=== PATIENT | female | born 1990 | race Caucasian/White ===

== ENCOUNTER 2024-12-22 15:56 | Emergency (ER) | payer SELFPAY ==
[2024-12-22] MEDS: ADENOSINE 3 MG/ML 2 ML VIAL IVP STA (16:14)
[2024-12-22 16:20] VITALS: RESP 16
--- NOTE | 2024-12-22 16:25 | ED ---
General Adult HPI - General Chief complaint: Arrhythmia/Palpitations Stated complaint: SOB Time Seen by Provider: 12/22/24 16:05 Source: patient, RN notes reviewed, old records reviewed Mode of arrival: wheelchair Limitations: no limitations - History of Present Illness Initial comments: This is a 34-year-old female who presents to the emergency department complaining of heart racing. Patient states she has had this happen multiple times in the past but has never been to the ER for it. Patient states she has never been worked up for her palpitations. Patient states her heart rate got over 200 so she got concerned and came to the emergency department. Patient denies any illegal drug use. Patient is on amphetamine use. Patient has any thyroid issues. Patient denies any [id number]-uvqrtns medications. Patient denies being sick recently. Patient denies any chest pain or difficulty breathing. Patient denies any swelling to the legs or calf tenderness - Related Data Home Medications Medication Instructions Recorded Confirmed Semaglutide [Wegovy] 2.4 mg SQ DIRECTED 12/22/24 12/22/24 Allergies Allergy/AdvReac Type Severity Reaction Status Date / Time No Known Allergies Allergy Verified 12/22/24 16:32 Review of Systems ROS Statement: Those systems with pertinent positive or pertinent negative responses have been documented in the HPI. ROS Other: All systems not noted in ROS Statement are negative. Past Medical History Additional Past Medical History / Comment(s): SVT History of Any Multi-Drug Resistant Organisms: None Reported Past Surgical History: No Surgical Hx Reported Past Psychological History: No Psychological Hx Reported Smoking Status: Never smoker Past Alcohol Use History: None Reported Past Drug Use History: None Reported General Exam - General Exam Comments Initial Comments: GENERAL: Patient is well-developed and well-nourished. Patient is nontoxic and well- hydrated and is in mild distress. ENT: Neck is soft and supple. No significant lymphadenopathy is noted. Oropharynx is clear. Moist mucous membranes. Neck has full range of motion without eliciting any pain. EYES: The sclera were anicteric and conjunctiva were pink and moist. Extraocular movements were intact and pupils were equal round and reactive to light. Eyelids were unremarkable. PULMONARY: Unlabored respirations. Good breath sounds bilaterally. No audible rales rhonchi or wheezing was noted. CARDIOVASCULAR: Patient is tachycardic at about 180 beats a minute. It is regular. ABDOMEN: Soft and nontender with normal bowel sounds. SKIN: Skin is clear with no lesions or rashes and otherwise unremarkable. NEUROLOGIC: Patient is alert and oriented x3. Cranial nerves II through XII are grossly intact. Motor and sensory are also intact. Normal speech, volume and content. Symmetrical smile. MUSCULOSKELETAL: Normal extremities with adequate strength and full range of motion. No lower extremity swelling or edema. No calf tenderness. LYMPHATICS: No significant lymphadenopathy is noted PSYCHIATRIC: Normal psychiatric evaluation. Limitations: no limitations Course Vital Signs 12/22/24 12/22/24 12/22/24 16:03 16:19 17:31 Temperature 98.0 F Pulse Rate 184 H 106 H 102 H Respiratory 18 16 16 Rate Blood Pressure 133/101 116/84 107/79 O2 Sat by Pulse 99 98 99 Oximetry Medical Decision Making - Medical Decision Making EKG is interpreted by myself and EKG shows a SVT at 176 bpm QRS is 91 QT interval is 227 QTc is 321. Patient's EKG shows no ST segment elevation or depression. Was pt. sent in by a medical professional or institution (, PA, ARBOREAL SCIENTIST, urgent ca re, hospital, or skilled nursing...) When possible be specific @ -No Did you speak to anyone other than the patient for history (EMS, parent, family, police, friend...)? What history was obtained from this source @ -No Did you review nursing and triage notes (agree or disagree)? Why? @ -I reviewed and agree with nursing and triage notes Were old charts reviewed (outside hosp., previous admission, EMS record, old EKG, old radiological studies, urgent care reports/EKG's, skilled nursing records)? Report findings @ -No old charts were reviewed Differential Diagnosis? @ -Differential Palpitations Ventricular arrhythmias, atrial arrhythmias, myocardial infarction, anemia, thyrotoxicosis, electrolyte imbalance, hypokalemia, pulmonary embolism, pulmonary disease, drugs, alcohol, anxiety, stress.... This is not meant to be an all-inclusive list. EKG interpreted by me (3pts min.). @ -As above X-rays interpreted by me (1pt min.). @ -Chest x-ray shows no acute normality CT interpreted by me (1pt min.). @ -None done U/S interpreted by me (1pt. min.). @ -None done What testing was considered but not performed or refused? (CT, X-rays, U/S, labs)? Why? @ -None What meds were considered but not given or refused? Why? @ -None Did you discuss the management of the patient with other professionals ( professionals i.e. , PA, ARBOREAL SCIENTIST, lab, RT, psych nurse, social work msw, insurance producer, teacher, sports development officer, case specialist)? Give summary @ -No Was smoking cessation discussed for >3mins.? @ -No Was critical care preformed (if so, how long)? @ -35 minutes Were there social determinants of health that impacted care today? How? (Homelessness, low income, unemployed, alcoholism, drug addiction, transportatio n, low edu. Level, literacy, decrease access to med. care, [place] [facility], rehab)? @ -No Was there de-escalation of care discussed even if they declined (Discuss DNR or withdrawal of care, Hospice)? DNR status @ -No What co-morbidities impacted this encounter? (DM, HTN, Smoking, COPD, CAD, Cancer, CVA, ARF, Chemo, Hep., AIDS, mental health diagnosis, sleep apnea, morbid obesity)? @ -None Was patient admitted / discharged? Hospital course, mention meds given and route, prescriptions, significant lab abnormalities, going to OR and other pertinent info. @ -Patient came in in SVT. Patient had an IV started placed on the monitor we ran the EKG twelve-lead consecutively I gave the patient 6 of adenosine and converted the patient to a normal sinus rhythm. All lab work was in normal range and patient was feeling much better we will discharge patient home to follow-up with cardiology as an outpatient. Undiagnosed new problem with uncertain prognosis? @ -No Drug Therapy requiring intensive monitoring for toxicity (Heparin, Nitro, Insulin, Cardizem)? @ -No Were any procedures done? @ -No Diagnosis/symptom? @ -SVT Acute, or Chronic, or Acute on Chronic? @ -Acute Uncomplicated (without systemic symptoms) or Complicated (systemic symptoms)? @ -Complicated Side effects of treatment? @ -No Exacerbation, Progression, or Severe Exacerbation? @ -No Poses a threat to life or bodily function? How? (Chest pain, [place], [place], pneumonia, PE, COPD, DKA, ARF, appy, cholecystitis, CVA, Diverticulitis, Homicidal, [place] icidal, threat to staff... and all critical care pts) @ -No - Lab Data Result diagrams: 12/22/24 16:24 12/22/24 16:24 Lab Results 12/22/24 12/22/24 12/22/24 Range/Units 16:24 16:24 16:24 WBC 9.35 (4.50-10.00) 10*3/uL RBC 4.72 (4.10-5.20) 10*6/uL Hgb 14.3 (12.0-15.0) g/dL Hct 41.8 (37.2-46.3) % MCV 88.6 (80.0-97.0) fL MCH 30.3 (27.0-32.0) pg MCHC 34.2 (32.0-37.0) g/dL Plt Count 253 (140-440) 10*3/uL MPV 11.0 (9.5-12.2) fL Immature Gran % (Auto) 0.2 % Neutrophils % 62.3 % Lymphocytes % 23.9 % Monocytes % 9.2 % Eosinophils % 3.9 % Basophils % 0.5 % Immature Gran # 0.02 (0.00-0.04) 10*3/uL Neutrophils # 5.83 (1.80-7.70) 10*3/uL Lymphocytes # 2.23 (0.90-5.00) 10*3/uL Monocytes # 0.86 (0.20-1.00) 10*3/uL Eosinophils # 0.36 H (0.04-0.35) 10*3/uL Basophils # 0.05 (0.00-0.10) 10*3/uL PT 9.9 L (10.0-12.5) sec INR 0.9 (<1.2) APTT 23.6 (22.0-30.0) sec Sodium 139 (137-145) mmol/L Potassium 3.5 (3.5-5.1) mmol/L Chloride 105 (98-107) mmol/L Carbon Dioxide 24 (22-30) mmol/L Anion Gap 10 mmol/L BUN 6 L (7-17) mg/dL Creatinine 0.65 (0.52-1.04) mg/dL Est GFR (CKD-EPI)AfAm >90 (>60 ml/min/1.73 sqM) Est GFR (CKD-EPI)NonAf >90 (>60 ml/min/1.73 sqM) Glucose 75 (74-99) mg/dL Calcium 9.1 (8.4-10.2) mg/dL Magnesium 1.9 (1.6-2.3) mg/dL Total Bilirubin 0.5 (0.2-1.3) mg/dL AST 31 (14-36) U/L ALT 13 (4-34) U/L Alkaline Phosphatase 76 (38-126) U/L Troponin I (0.000-0.034) ng/mL Total Protein 6.3 (6.3-8.2) g/dL Albumin 3.8 (3.5-5.0) g/dL TSH 2.000 (0.465-4.680) mIU/L 12/22/24 Range/Units 16:24 WBC (4.50-10.00) 10*3/uL RBC (4.10-5.20) 10*6/uL Hgb (12.0-15.0) g/dL Hct (37.2-46.3) % MCV (80.0-97.0) fL MCH (27.0-32.0) pg MCHC (32.0-37.0) g/dL Plt Count (140-440) 10*3/uL MPV (9.5-12.2) fL Immature Gran % (Auto) % Neutrophils % % Lymphocytes % % Monocytes % % Eosinophils % % Basophils % % Immature Gran # (0.00-0.04) 10*3/uL Neutrophils # (1.80-7.70) 10*3/uL Lymphocytes # (0.90-5.00) 10*3/uL Monocytes # (0.20-1.00) 10*3/uL Eosinophils # (0.04-0.35) 10*3/uL Basophils # (0.00-0.10) 10*3/uL PT (10.0-12.5) sec INR (<1.2) APTT (22.0-30.0) sec Sodium (137-145) mmol/L Potassium (3.5-5.1) mmol/L Chloride (98-107) mmol/L Carbon Dioxide (22-30) mmol/L Anion Gap mmol/L BUN (7-17) mg/dL Creatinine (0.52-1.04) mg/dL Est GFR (CKD-EPI)AfAm (>60 ml/min/1.73 sqM) Est GFR (CKD-EPI)NonAf (>60 ml/min/1.73 sqM) Glucose (74-99) mg/dL Calcium (8.4-10.2) mg/dL Magnesium (1.6-2.3) mg/dL Total Bilirubin (0.2-1.3) mg/dL AST (14-36) U/L ALT (4-34) U/L Alkaline Phosphatase (38-126) U/L Troponin I <0.012 (0.000-0.034) ng/mL Total Protein (6.3-8.2) g/dL Albumin (3.5-5.0) g/dL TSH (0.465-4.680) mIU/L Disposition Clinical Impression: Supraventricular tachycardia Disposition: HOME SELF-CARE Condition: Good Instructions (If sedation given, give patient instructions): Supraventricular Tachycardia (ED) Additional Instructions: Patient should follow-up with cardiology Is patient prescribed a controlled substance at d/c from ED?: No Referrals: Qamar Rodríguez MD [Primary Care Provider] - 1-2 days Time of Disposition: 18:14
[2024-12-22 16:33] LABS: Basophils # (A) 0.05 10*3/uL (0.00-0.10); Basophils % (A) 0.5 %; Eosinophils # (A) 0.36 10*3/uL (0.04-0.35); Eosinophils % (A) 3.9 %; HCT 41.8 % (37.2-46.3); HGB 14.3 g/dL (12.0-15.0); Lymphocytes # (A) 2.23 10*3/uL (0.90-5.00); Lymphocytes % (A) 23.9 %; MCH 30.3 pg (27.0-32.0); MCHC 34.2 g/dL (32.0-37.0); MCV 88.6 fL (80.0-97.0); Monocytes # (A) 0.86 10*3/uL (0.20-1.00); Monocytes % (A) 9.2 %; Neutrophils # (A) 5.83 10*3/uL (1.80-7.70); Neutrophils % (A) 62.3 %; Platelet Count 253 10*3/uL (140-440); RBC 4.72 10*6/uL (4.10-5.20); RDW 12.8 % (11.5-14.5); WBC 9.35 10*3/uL (4.50-10.00)
[2024-12-22 16:38] LABS: INR 0.9 (<1.2); Partial Thromboplastin Time 23.6 sec (22.0-30.0); Prothrombin Time 9.9 sec (10.0-12.5)
[2024-12-22 16:40] LABS: ALT 13 U/L (4-34); AST 31 U/L (14-36); African American GFR (CKD) >90 (>60 ml/min/1.73 sqM); Albumin 3.8 g/dL (3.5-5.0); Alkaline Phosphatase 76 U/L (38-126); Anion Gap 10 mmol/L; Blood Urea Nitrogen 6 mg/dL (7-17); Calcium 9.1 mg/dL (8.4-10.2); Carbon Dioxide 24 mmol/L (22-30); Chloride 105 mmol/L (98-107); Glucose 75 mg/dL (74-99); Magnesium 1.9 mg/dL (1.6-2.3); Non-African American GFR(CKD) >90 (>60 ml/min/1.73 sqM); Potassium 3.5 mmol/L (3.5-5.1); Sodium 139 mmol/L (137-145); Total Bilirubin 0.5 mg/dL (0.2-1.3); Total Protein 6.3 g/dL (6.3-8.2)
--- NOTE | 2024-12-22 16:52 | XR ---
EXAMINATION TYPE: XR chest 2V DATE OF EXAM: 12/22/2024 4:44 PM COMPARISON: Chest radiographs from 12/22/2024. CLINICAL INDICATION: Female, 34 years old with history of dysrhythmia; [facility] TECHNIQUE: XR chest 2V Frontal and lateral views of the chest. FINDINGS: Lungs/Pleura: There is flattening of the diaphragm with increased lucency of the lungs. No evidence o f pneumothorax, pleural effusion or focal consolidation. Pulmonary vascularity: Unremarkable. Heart/mediastinum: Cardiomediastinal silhouette is unremarkable. Musculoskeletal: No acute osseous pathology. IMPRESSION: 1. No acute cardiopulmonary disease process. 2. COPD changes. [facility], , 12/22/2024 4:50 PM
[2024-12-22 18:42] VITALS: BP 103/71; PULSE 104; TEMP 98.4
[2024-12-22 19:20] LABS: Amphetamine Screen,Urine Not Detected (NotDetected); Barbiturate Screen,Urine Not Detected (NotDetected); Benzodiazepines Screen,Urine Not Detected (NotDetected); Cocaine Screen,Urine Not Detected (NotDetected); Methadone Screen, Urine Not Detected (NotDetected); Opiate Screen,Urine Not Detected (NotDetected); Oxycodone Screen, Urine Not Detected (NotDetected); Phencyclidine Screen,Urine Not Detected (NotDetected); Tricyclic Antidepressant,Urine Not Detected (NotDetected); Urn Cannabinoid Scrn Not Detected (NotDetected)
== END 2024-12-22 18:41 | disposition home or self-care (01) ==
LOC: EC 15:56
DX: I47.10 Supraventricular tachycardia, unspecified (principal)
CPT/HCPCS: 36415; 93005; 80053; 83735; 84443; 84484; 85025; 85610; 85730; 80306; 71046; 99291; 96374; J0153